=== PATIENT | male | born 2000 | race Caucasian/White ===

== ENCOUNTER 2019-02-12 02:04 | Emergency (ER) | payer SELFPAY ==
[~2019-02-12] VITALS: Ht 175.3 cm; Wt 56.7 kg
--- NOTE | 2019-02-12 02:04 | NUR ---
PT BIB [facility], PREBOOK. TAKEN TO CHAIR C
[2019-02-12 02:11] VITALS: BP 119/73
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
--- NOTE | 2019-02-12 02:18 | NUR ---
Dr. Troy examining patient.
[2019-02-12 02:25] VITALS: BP 119/73
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
== END 2019-02-12 02:25 ==
LOC: MED 02:04
DX: T22.052A Burn of unspecified degree of left shoulder, initial encounter (principal); V49.49XA Driver injured in collision with other motor vehicles in traffic accident, initial encounter; Y93.89 Activity, other specified; Y92.488 Other paved roadways as the place of occurrence of the external cause; Y99.8 Other external cause status
CPT/HCPCS: 99283